=== PATIENT | male | born 1950 | race Caucasian/White ===

== ENCOUNTER → 2019-01-09 15:02 | Outpatient (CLI) | payer MEDICARE, SELFPAY ==
[2019-01-09 16:29] LABS: PSA,Total- Diagnostic 5.68 ng/mL (0.0-4.0)
== END ==
PROVIDERS: Family Provider Family Medicine; PCP Family Medicine; Referring Provider Family Medicine; Visit Provider Family Medicine
DX: R97.20 Elevated prostate specific antigen [PSA] (principal)
CPT/HCPCS: 36415; 84153

== ENCOUNTER → 2019-04-10 | Outpatient (CLI) | payer MEDICARE, SELFPAY ==
[2019-04-12 11:30] LABS: PSA, Free 1.06 ng/mL; PSA, Total Ultrasensitive 5.3 ng/mL (0.0-4.0)
== END | disposition home or self-care (01) ==
LOC: MFPLAB 09:22
PROVIDERS: Family Provider Family Medicine; PCP Family Medicine; Referring Provider Family Medicine; Visit Provider Nurse Practitioner Adult Health
DX: R97.20 Elevated prostate specific antigen [PSA] (principal)
CPT/HCPCS: 36415; 84153; 84154

== ENCOUNTER 2023-01-23 15:53 | Outpatient (CLI) | payer MEDICARE, SELFPAY ==
[2023-01-23 18:08] LABS: Anion Gap 6 (5-15); BUN 16 mg/dL (7-18); Calcium,Total 9.1 mg/dL (8.5-10.1); Chloride 107 mmol/L (98-107); Cholesterol 212 mg/dL (200); Creatinine, Serum 0.94 mg/dL (0.70-1.30); EST Glomerular Filtration Rate 84 mL/min (>60); Est Glom Filt Rate - Afr Amer 101 mL/min (>60); Glucose 87 mg/dL (74-106); High Density Lipoprotein 42 mg/dL; Potassium 3.7 mmol/L (3.5-5.1); Sodium Level 136 mmol/L (136-145); Triglycerides 168 mg/dL; Very Low Density Lipoprotein 34 mg/dL (5-40)
== END 2023-01-23 23:59 | disposition home or self-care (01) ==
PROVIDERS: PCP Family Medicine; Visit Provider Family Medicine
DX: Z00.00 Encounter for general adult medical examination without abnormal findings (principal); R97.20 Elevated prostate specific antigen [PSA]; Z12.5 Encounter for screening for malignant neoplasm of prostate
CPT/HCPCS: 36415; 80048; 80061; 84153; G0103

== ENCOUNTER → 2023-03-02 | Outpatient (CLI) | payer MEDICARE, SELFPAY ==
--- NOTE | 2023-03-02 | IMM_PTH ---
PATIENT: REJI RIVAS LOC: [facility] U#:[id number] AGE/SX: 72/M ROOM: RE03/02/[address]: Dr. Jose Enrique Newby MD : 1950 BED: DIS: 03/02/2023 SPEC #: [id number] RECD: 03/06/23 12:05 STATUS: KENN REMel #: [id number] RENÉE: 03/02/23 00:[address]: Jose Enrique Newby DEPT: IMMUNOHISTOCHEMISTRY RECD BY: Lynn Zuleta ENTERED: 03/06/23 12:06 SP TYPE: IMMUNO OTHR DR: Dr. Maddi Heath MD Tissues: B - PROSTATE RIGHT E - PROSTATE LEFT F - PROSTATE LEFT Procedures: 34BE12 (add) P40 (add) 34BE12 (initial) PHYSICIAN & INSTITUTION [place] [id number] SPECIMEN INFORMATION: Tissue Source: B - Right prostate, mid, E - Left prostate, mid, F - Left prostate, base Clinical Info: Elevated PSA Specimen Number: [id number] B, E & F CPT code: 56753, 23764 x5 METHODOLOGY: Deparaffinized sections of prefer/formalin-fixed tissue or PAP/DQ stained slides are incubated with monoclonal/polyclonal antibodies/oligonucleotide probes. Localization is made via biotin free immunoperoxidase method. Appropriate controls are performed and reacted as expected. Results on target cell population are indicated in the following table: RESULTS: ANTIBODY / CLONE RESULT Block B P40 (BC28) negative * 34BE12 (34BE12) negative * Block E P40 (BC28) negative * 34BE12 (34BE12) negative * Block F P40 (BC28) negative 34BE12 (34BE12) negative *?Positive in HGPIN. These tests were developed and their performance characteristics determined by [facility]. They may not have been cleared or approved by the U.S. Food and Drug Administration. The FDA has determined that such clearance or approval is not necessary. The above immunohistochemical/dualISH markers are ordered and reviewed by the Pathologist. INTERPRETATION: B. Right prostate, mid, core biopsy: Focal atypical small acinar proliferation (JEFFERY). Focal high-grade prostatic intraepithelial neoplasia (HGPIN). E. Left prostate, mid, core biopsy: Adenocarcinoma. Focal high-grade prostatic intraepithelial neoplasia (HGPIN). F. Left prostate, base, core biopsy: Adenocarcinoma. SJ:rafaela 03/07/2023
--- NOTE | 2023-03-02 08:00 | PROSBIL_PTH ---
PATIENT: REJI RIVAS LOC: [facility] U#:[id number] AGE/SX: 72/M ROOM: RE03/02/[address]: Dr. Jose Enrique Newby MD : 1950 BED: DIS: 03/02/2023 SPEC #: [id number] RECD: 03/02/23 16:30 STATUS: KENN GUERLINE #: [id number] RENÉE: 03/02/23 08:[address]: Jose Enrique Newby DEPT: SURGICAL PATHOLOGY RECD BY: Laura Deshpande ENTERED: 03/03/23 07:24 SP TYPE: PROST BX FARA DR: Dr. Maddi Heath MD Tissues: A - PROSTATE RIGHT B - PROSTATE RIGHT C - PROSTATE RIGHT D - PROSTATE LEFT E - PROSTATE LEFT F - PROSTATE LEFT Procedures: PROSTATE BX HEADER OPERATION: Prostate biopsy PRE-OP DIAGNOSIS: Elevated PSA TISSUE SUBMITTED: A - Right apex, B - Right mid, C - Right base, D - Left apex, E - Left mid, F - Left base MICROSCOPIC DIAGNOSIS A. Right prostate, apex, core biopsy: Prostatic adenocarcinoma. Aruna grade: 3+3=6 Number of cores involved: 2/2 Proportion of tissue involved: ~25% Perineural invasion: Not identified. Greatest tumor length: 1.0 cm, discontinuous. Focal mild acute and chronic inflammation. B. 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 See comment. C. Right prostate, base, core biopsy: Prostatic adenocarcinoma. [place] grade: 3+4=7 Number of cores involved: 1/2 Proportion of tissue involved: ~50% Perineural invasion: Present, focal. Greatest tumor length: 1.0 cm Focal high-grade prostatic intraepithelial neoplasia (HGPIN). See comment. D. Left prostate, apex, core biopsy: Prostatic adenocarcinoma. [place] grade: 3+3=6 Number of cores involved: 1/2 Proportion of tissue involved: ~25% Perineural invasion: Not identified. Greatest tumor length: 0.5 cm See comment. E. Left prostate, mid, core biopsy: Prostatic adenocarcinoma. Aruna grade: 3+3=6 Number of cores involved: 1/2 Proportion of tissue involved: ~5% Perineural invasion: Not identified. Greatest tumor length: 1.0 cm, discontinuous. Focal high-grade prostatic intraepithelial neoplasia (HGPIN). Focal chronic inflammation. See comment. F. Left prostate, base, core biopsy: Prostatic adenocarcinoma. Aruna grade: 3+3=6 Number of cores involved: 1/2 Proportion of tissue involved: <5% Perineural invasion: Not identified. Greatest tumor length: <0.1 cm See comment. SJ:rafaela 03/06/2023 COMMENT B. Immunohistochemistry ([id number]) supports the above diagnosis. C & D. The second core also shows focal atypical small acinar proliferation (JEFFERY). E & F. Immunohistochemistry ([id number]) supports the above diagnosis. MICROSCOPIC DESCRIPTION Slides are reviewed. GROSS DESCRIPTION A - Received is one container designated prostate, right apex. The specimen consists of two elongated fragments of light jimenez-white soft tissue each measuring 1.5 cm in length and 0.1 cm in diameter. The specimen is totally submitted in one cassette. B - Received is one container designated prostate, right mid. The specimen consists of two elongated fragments of light jimenez-white soft tissue each measuring 1.0 cm in length and 0.1 cm in diameter. The specimen is totally submitted in one cassette. C - Received is one container designated prostate, right base. The specimen consists of two elongated fragments of light jimenez-white soft tissue each measuring 1.5 cm in length and 0.1 cm in diameter. The specimen is totally submitted in one cassette. D - Received is one container designated prostate, left apex. The specimen consists of two elongated fragments of light jimenez-white soft tissue measuring 1.1 and 1.5 cm in length and 0.1 cm in diameter. The specimen is totally submitted in one cassette. E - Received is one container designated prostate, left mid. The specimen consists of two elongated fragments of light jimenez-white soft tissue each measuring 1.5 cm in length and 0.1 cm in diameter. The specimen is totally submitted in one cassette. F - Received is one container designated prostate, left base. The specimen consists of two elongated fragments of light jimenez-white soft tissue measuring 1.0 and 1.3 cm in length and 0.1 cm in diameter. The specimen is totally submitted in one cassette. / SJ:rafaela 03/03/2023 TC:0 CPT: G0146
== END | disposition home or self-care (01) ==
LOC: LABSPEC 16:23
PROVIDERS: PCP Family Medicine; Referring Provider Urology; Visit Provider Urology
DX: R97.20 Elevated prostate specific antigen [PSA] (principal)
CPT/HCPCS: 88305; 88341; 88342; G0416

== ENCOUNTER 2023-05-17 05:41 | Day surgery (SDC) | payer MEDICARE, SELFPAY ==
[2023-05-17 06:14] VITALS: BP 129/87; PULSE 63; RESP 16; TEMP 36.9; O2SAT 96; BMI 28.8
[2023-05-17] MEDS: Lactated Ringers 1,000 ML 15 ML IV (06:28)
--- NOTE | 2023-05-17 07:04 | HP.PCM_ITS ---
[facility] - General General Date of Service: 05/17/23 Chief Complaint: Prostate cancer intermediate risk HPI Narrative REJI RIVAS, is a 72 M who presents for placement of gold markers and spacer gel for intermediate risk prostate cancer he is undergoing short term androgen deprivation therapy and can have definitive radiation therapy for treatment for his prostate cancer. He understands that there is survival advantage to undergoing androgen deprivation therapy with radiation for intermediate risk prostate cancer and randomized studies. Reina placed some markers in the prostate with gold to tract the prostate. Radiation oncology is requested I place spacer gel to lower the rectal toxicity from radiation explained to the patient that there is no guarantees that the spacer gel will avoid any serious complications of the rectum like a fistula or injury to the damage to the rectum from radiation that the data shows some minor advantage but since there is some advantage with spacer gel can to proceed in place spacer gel. [facility] Medical History (Updated 05/08/23 @ 09:58 by Isha Leiva) Alcohol use Anxiety Arthritis Elevated PSA Essential (primary) hypertension Former smoker Frequency of micturition Loss of consciousness Malignant neoplasm of prostate Nocturia Unspecified visual loss Vasectomy planned Wears glasses Home Medications lisinopril 10 mg tablet 10 mg PO DAILY 03/23/23 [History Last Taken Unknown] Allergy/AdvReac Type Severity Reaction Status Date / Time No Known Allergies Allergy Verified 05/17/23 06:13 Surgical History (Updated 05/08/23 @ 09:58 by Isha Leiva) H/O: vasectomy Hx of cataract extraction Hx of colonoscopy Social History Smoking Status: Former smoker alcohol intake: current alcohol intake frequency: a few times a week substance use type: does not use Vital Signs Vital Signs Vital Signs: 05/17/23 06:14 05/17/23 06:14 Temperature 98.5 F Temperature Source Temporal Pulse Rate 63 Respiratory Rate 16 Respiratory Pattern Normal Blood Pressure 129/87 H Blood Pressure Mean 101 Blood Pressure Source Monitor Blood Pressure Position Semi-Fowlers Blood Pressure Location Left Arm Pulse Ox 96 Oxygen Delivery Method Room Air Weight Weight: 96.615 kg Body Mass Index (BMI) 28.8
--- NOTE | 2023-05-17 07:05 | DCINST_ITS ---
Discharge Instructions Diet Discharge Diet: No restrictions Activity Discharge Activity: Return to Normal Activity and May Not Drive (while taking narcotic pain medications.) Dressing / Incision Call your doctor if you observe: Fever of 101 or Higher Follow Up Care Please Follow Up With: Jose Enrique Newby MD When: Call [phone] for an appointment Test Results: Test results from this visit will be discussed in further detail at your follow- up appointment, if applicable. Discharge Plan Admission Attending Provider: Jose Enrique Newby Primary Care Provider: Maddi Heath Discharge Orders/Prescriptions Prescriptions: No Action lisinopril 10 mg tablet 10 mg PO DAILY Referrals / Follow Up: Maddi Heath MD [Primary Care Provider] - Disposition Disposition (needs filled in before D/C Order can be placed): Home, Self Care
[2023-05-17] MEDS: Cefazolin 2 GM in 0.9% Normal Saline 100 ML IV (07:26)
--- NOTE | 2023-05-17 07:46 | PCM.OPRPT ---
Report of Operation Date of Procedure: 05/17/23 Pre-Operative Diagnosis: Prostate cancer Post-Operative Diagnosis: The same Surgery/Procedure Performed:: Placement of gold markers in the prostate and also placement of spacer gel matrix between the rectum and the prostate Description of Surgical Findings:: The penis and testicles were prepped and draped in usual sterile fashion, ultrasound probe was placed into the rectum and biplanar ultrasound was performed on the prostate. Identified the base mid and apex of the prostate identified the transition zone prostate. Then using a needle the first size marker was placed into the right base of the prostate, the second size marker was placed in the left base of the prostate, and the third core marker was placed in the right apex of the prostate after all 3 markers were placed the placement of the markers were confirmed by ultrasonography. I then introduced a biplanar ultrasound probe into the rectum and performed ultrasonography and identified the Denonvilliers' fascia the prostate mid base and apex and seminal vesicles. The spacer gel mix was then prepared on the back table per manufactures instruction. Under ultrasound guidance in the midline perineum a bevel needle down we advanced through the perineum below the prostate into the space of Denonvilliers' fascia. This space which could be identified by ultrasound with a bright white layer between the prostate and the rectum. I then injected a puff of normal saline to identify the space further. After I confirmed that the needle was in the correct space in the mid prostate and the space of Denonvilliers' fascia between the rectum and the prostate. Then over the course of 15 seconds the gel matrix was injected slowly there was nice separation between the prostate and the rectum at the gel matrix was injected. The position of the gel matrix was confirmed by ultrasound. Then the injection needle was removed intact. Patient's perineum was cleaned patient was taken out of stirrups and then taken back to the PACU in good condition.
[2023-05-17 07:53] VITALS: BP 102/65; BP 129/87; PULSE 59; RESP 14; TEMP 36.6; O2SAT 95
[2023-05-17 08:00] VITALS: BP 129/87; BP 98/65; PULSE 56; RESP 14; O2SAT 93
[2023-05-17 08:10] VITALS: BP 122/77; BP 129/87; PULSE 58; RESP 16; O2SAT 95
[2023-05-17 08:15] VITALS: BP 120/79; BP 129/87; PULSE 56; RESP 16; TEMP 36.6; O2SAT 97
[2023-05-17 08:34] VITALS: BP 129/87
== END 2023-05-17 08:45 | disposition home or self-care (01) ==
LOC: SDC 05:43 → AC 05:44
PROVIDERS: PCP Family Medicine; Referring Provider Urology; Visit Provider Urology
PROC: (CPT 55874; principal; 2023-05-17 07:15)
DX: C61 Malignant neoplasm of prostate (principal); I10 Essential (primary) hypertension; Z79.899 Other long term (current) drug therapy; Z87.891 Personal history of nicotine dependence
CPT/HCPCS: 55876; 55874; 00902; J7120; J2405

== ENCOUNTER → 2023-05-25 | Outpatient (CLI) | payer MEDICARE, SELFPAY ==
--- NOTE | 2023-05-25 14:57 | MRI_ITS ---
STUDY: MR PELVIS WITH T WITHOUT CONTRAST REASON FOR EXAM: Male, 72 years old. eval disease extent in prostate, int risk prost ca -- planning for radiation therapy PSA 11.70 01/23/23 TECHNIQUE: Standardized fat and water weighted pulse sequences were obtained in all 3 orthogonal planes, pre-and post contrast administration. Post contrast imaging obtained in single phase. Diffusion imaging was obtained with ADC. IV 20 cc clariscan was administered for the contrast portion of the examination. COMPARISON: CT therapy planning May 24, 2023 FINDINGS: Prostate measures 5.4 x 4.0 x 3.4 cm (40ml) Transitional zone: Heterogeneous signal without suspicious hypointense T2 nodularity. Irregular heterogeneous diffusion restriction in the right prostate base and left prostatic body. Peripheral zone: Right prosthetic mid body 1.2 cm moderate increased diffusion signal with marked decreased ADC, with hyperintense T1 likely postbiopsy hemorrhage along the periphery of the lesion, without no focal enhancement or discrete T2 hyperintense mass. Additional T1 hyperintensity seen within the left peripheral gland scattered from mid body to apex. No focal capsular bulge. Unremarkable seminal vesicles. Unremarkable rectal prosthetic angles and neurovascular bundle. Likely postprocedural localized fluid posterior to the prostate and anterior to the rectum No adenopathy appreciated within the imaged pelvis. Bladder is incompletely distended with homogeneous unremarkable bladder wall. Imaged bowel is normal in appearance. No osseous destructive lesion is appreciated within the pelvis. Small fat-containing left inguinal hernia without inflammation. MRI/Pelvis W/WO Contrast IMPRESSION: No evidence of extraprostatic spread of disease of known prostate carcinoma. Right prostatic body 1.2 cm borderline PIRAD 3/4 lesion with surrounding biopsy changes. Ill-defined diffusion restriction seen in the central gland without well-defined T2 lesion. Please note biopsy changes may limit internal T2 characterization. Prostate volume 38mL Small left inguinal fat-containing hernia without inflammation. Electronically Signed: Oscar Hayes MD at 9:57 EDT ,
[2023-05-25 15:33] LABS: EGFR FINGERSTICK > 60.0000 mL/min (>60)
== END | disposition home or self-care (01) ==
PROVIDERS: PCP Family Medicine; Referring Provider Student in an Organized Health Care Education/Training Program; Visit Provider Student in an Organized Health Care Education/Training Program
DX: C61 Malignant neoplasm of prostate (principal)
CPT/HCPCS: 72197; A9575